=== PATIENT | female | born 1945 | race Caucasian/White ===

== ENCOUNTER 2016-12-10 18:48 | Emergency (ER) | payer OTHER ==
[2016-12-10 21:23] LABS: % IMMATURE GRANULYOCYTES 0.3 % (0.0-1.1); ABSOLUTE IMMATURE GRANULOCYTES 0.03 10^3/uL (0.00-0.10); ADD DIFF? NO; ADD MORPH? NO; ADD SCAN? NO; ATYPICAL LYMPHOCYTE FLAG 0 (0-99); FRAGMENT RBC FLAG 0 (0-99); HEMOGLOBIN 13.4 g/dL (12.6-16.3); LEFT SHIFT FLG 10 (0-99); LIPEMIA HEMOLYSIS FLAG 80 (0-99); MEAN CELL HEMOGLOBIN 29.4 pg (27.9-34.1); MEAN CELL HEMOGLOBIN CONCENTR. 33.5 g/dL (32.4-36.7); MEAN CELL VOLUME 87.7 fL (81.5-99.8); MEAN PLATELET VOLUME 10.9 fL (8.7-11.7); PLATELET CLUMPS FLAG 0 (0-99); PLATELET COUNT 271 10^3/uL (150-400); RED BLOOD CELL COUNT 4.56 10^6/uL (4.18-5.33)
--- NOTE | 2016-12-10 21:29 | EDPHY ---
H & P Time Seen by Provider: 12/10/16 21:20 HPI/ROS: CHIEF COMPLAINT: "Terrible headache" HISTORY OF PRESENT ILLNESS: The patient is a 71 y/o female arriving with her complaining of a "terrible headache" upon waking this morning around 04: 00. She has had headaches like this previously, but this afternoon she developed nausea and had to lie down. Her took her blood pressure this evening and noted it was around 160/100, which she reports is high for her, so she came to the ED for evaluation. She took aspirin for her pain and reports it decreased her pain from 8/10 to 5/10 in severity. She feels much better upon assessment. She denies associated photophobia, fever, pain elsewhere, weakness, or paresthesias. REVIEW OF SYSTEMS: Constitutional: No fever, no chills Eyes: No visual changes ENT: No sore throat Respiratory: No cough, no shortness of breath Cardiac: No chest pain Gastrointestinal: see HPI Genitourinary: No hematuria, no dysuria Musculoskeletal: No leg pain or swelling Skin: No rash Neurological: see HPI Psychiatric: No depression Past Medical/Surgical History: MVP with mitral regurgitation Social History: , who is retired orthopedist, is at bedside. Smoking Status: Never smoked Physical Exam: General Appearance: Alert, pleasant Eyes: Pupils equal and round, no conjunctival pallor or injection ENT, Mouth: Mucous membranes moist Neck: Normal inspection Respiratory: Lungs are clear to auscultation Cardiovascular: Regular rate and rhythm. 2/6 systolic murmur Gastrointestinal: Abdomen is soft and non-tender Neurological: A&O, CN II-XII intact, motor/sensory intact Skin: Warm and dry, no rash Extremities: Nontender, no pedal edema Psychiatric: Mood and affect normal Constitutional: Initial Vital Signs Temperature (C) 36.3 C 12/10/16 18:50 Heart Rate 70 12/10/16 18:50 Respiratory Rate 18 12/10/16 18:50 Blood Pressure 160/93 H 12/10/16 18:50 O2 Sat (%) 98 12/10/16 18:50 O2 Delivery Mode Room Air Allergies/Adverse Reactions: No Known Allergies Allergy (Unverified 08/03/14 22:21) Home Medications: Medication Instructions Recorded NK [No Known Home Meds] 04/27/17 Medical Decision Making - Diagnostics EKG Interpretation: The 12 lead EKG was interpreted by myself. NSR, no ST/T changes, normal EKG. See hard copy and/or "tracemaster" electronic copy for interpretation. ED Course/Re-evaluation: This is a 71 y/o female presenting with a history of a 16-hour headache. Upon assessment, her headache and nausea have significantly improved spontaneously. An IV was previously established with labs drawn including CBC, CHEM. EKG shows normal sinus rhythm. We discussed performing imaging, and further evaluation, but she (and her MD ) declined all further work up as she is feeling improved at this time. I recommended followup with her PCP. Return precautions given. Strongly encouraged pt to return for recurrent sx. Unclear etiology of sx, possibly related to elevated BP. No evidence of CVA or ICH at this time. Neuro exam normal. Differential Diagnosis: includes though not limited to ICH, SAH, CVA/TIA, hypertensive urgency/emergency , sinusitis, meningitis - Data Points Laboratory Results: Laboratory Results 12/10/16 19:40 12/10/16 19:40 Departure - Departure Disposition: Home, Routine, Self-Care Clinical Impression: Headache Qualifiers: Headache type: unspecified Headache chronicity pattern: acute headache Intractability: not intractable Qualified Code(s): R51 - Headache Condition: Good Instructions: General Headache (ED) Additional Instructions: Follow up with your primary care provider for unimproved symptoms over the next 1-2 days. Referrals: Pamela Valdivia MD [Primary Care Provider] - As per Instructions Report Scribed for: Rebecca Weaver Report Scribed by: Jennifer Strauss Date of Report: 12/10/16 Time of Report: 21:24 Physician Review and Approval Statement: 12/10/16 21:29 Portions of this note were transcribed by a territory sales manager medical. I personally performed a history, physical exam, medical decision making, and confirmed accuracy of information the transcribed note.
[2016-12-10 21:30] LABS: ANION GAP 12 mEq/L (8-16); CALCIUM 9.5 mg/dL (8.5-10.4); CARBON DIOXIDE 26 mEq/l (22-31); CHLORIDE 99 mEq/L (97-110); CREATININE 0.7 mg/dL (0.6-1.0); GLOMERULAR FILTRATION RATE > 60; GLUCOSE 112 mg/dL (70-100); POTASSIUM 3.6 mEq/L (3.5-5.2); SODIUM 137 mEq/L (134-144)
--- NOTE | 2016-12-10 21:45 | CPEKG ---
Heart Rate: 66 RR Interval: 909 P-R Interval: 180 QRSD Interval: 94 QT Interval: 460 QTC Interval: 482 P [place]: 35 QRS [place]istad: 4 T Wave [place]: 36 EKG Severity - NORMAL ECG - EKG Impression: SINUS RHYTHM Electronically Signed By: Tree Mendenhall 11-Dec-2016 12:14:58
[2016-12-10 22:22] VITALS: BP 150/92; PULSE 70; RESP 18; TEMP 98.2; O2SAT 96
== END 2016-12-10 22:23 | disposition home or self-care (01) ==
DX: R51 Headache (principal)

== ENCOUNTER → 2017-12-17 | Outpatient (CLI) | payer OTHER | LOC: FIMAGING 09:15 | PROVIDERS: ATTEND Internal Medicine | DX: Z12.31 Encounter for screening mammogram for malignant neoplasm of breast (principal) ==

== ENCOUNTER → 2017-12-27 | Outpatient (CLI) | payer OTHER | LOC: FIMAGING 08:41 | PROVIDERS: ATTEND Internal Medicine | DX: Z09 Encounter for follow-up examination after completed treatment for conditions other than malignant neoplasm (principal); N63.0 Unspecified lump in unspecified breast ==

== ENCOUNTER → 2018-10-08 | Outpatient (CLI) | payer OTHER | LOC: FLAB 14:51 | PROVIDERS: ATTEND Internal Medicine | DX: R05 Cough (principal) ==